=== PATIENT | male | born 1970 | race Caucasian/White ===

== ENCOUNTER 2019-07-06 15:47 | Outpatient (REF) | payer BC, SELFPAY ==
[2019-07-06 21:37] LABS: HCT 44.5 % (40.0-50.0); HGB 15.6 g/dL (13.5-17.5); Mean Corp. HGB Concentration 35.1 g/dL (32.0-36.0); Mean Corpuscular Hemoglobin 29.9 pg (27.0-33.0); Mean Corpuscular Volume 85.2 fL (80-95); Mean Platelet Volume 10.4 fL (8.0-11.0); Platelet Count 326 x1000/uL (130-400); RBC 5.22 m/cumm (4.50-6.00); RBC Distribution Width 12.7 % (11.8-14.1); White Blood Cell Count 8.55 k/cumm (4.4-10.8)
[2019-07-06 21:54] LABS: BUN 24 mg/dL (7-18); CREATININE 0.96 mg/dL (0.70-1.30); Calcium 9.2 mg/dL (8.5-10.1); Chloride 102 mmol/L (98-107); Glucose 82 mg/dL (74-106); Sodium 139 mmol/L (136-145)
== END 2019-07-06 16:07 ==
LOC: NCHCN 15:47
PROVIDERS: Visit Provider Internal Medicine
DX: Z00.00 Encounter for general adult medical examination without abnormal findings (principal); R03.0 Elevated blood-pressure reading, without diagnosis of hypertension
CPT/HCPCS: 80048; 85027

== ENCOUNTER 2019-07-12 14:24 | Outpatient (REF) | payer BC, SELFPAY | END 2019-07-12 14:44 | LOC: NCHCN 14:24 | PROVIDERS: Visit Provider Internal Medicine | DX: Z13.220 Encounter for screening for lipoid disorders (principal); Z53.8 Procedure and treatment not carried out for other reasons | CPT/HCPCS: 80061 ==

== ENCOUNTER 2019-07-15 08:34 | Outpatient (REF) | payer BC, SELFPAY ==
[2019-07-15 21:32] LABS: Calculated LDL 138 mg/dL; Cholesterol 203 mg/dL (<200); HDL Cholesterol 45 mg/dL (40-60); Triglyceride 100 mg/dL (<150)
== END 2019-07-15 08:54 ==
LOC: NCHCN 08:34
PROVIDERS: Visit Provider Internal Medicine
DX: Z13.220 Encounter for screening for lipoid disorders (principal)
CPT/HCPCS: 80061

== ENCOUNTER 2020-01-24 22:40 | Outpatient (REF) | payer BC, SELFPAY ==
[2020-01-24 22:28] LABS: HCT 44.4 % (40.0-50.0); HGB 15.4 g/dL (13.5-17.5); Mean Corp. HGB Concentration 34.7 g/dL (32.0-36.0); Mean Corpuscular Hemoglobin 29.6 pg (27.0-33.0); Mean Corpuscular Volume 85.4 fL (80-95); Mean Platelet Volume 10.4 fL (8.0-11.0); Platelet Count 317 x1000/uL (130-400); RBC Distribution Width 12.5 % (11.8-14.1); White Blood Cell Count 7.66 k/cumm (4.4-10.8)
[2020-01-24 22:57] LABS: ALT 58 U/L (16-63); AST 31 U/L (15-37); Albumin 4.7 g/dL (3.4-5.0); Alkaline Phosphatase 56 U/L (46-116); BUN 27 mg/dL (7-18); Bilirubin, Total 0.8 mg/dL (0.2-1.0); CREATININE 0.97 mg/dL (0.70-1.30); Calcium 8.9 mg/dL (8.5-10.1); Chloride 103 mmol/L (98-107); Glucose 91 mg/dL (74-106); Potassium 4.3 mmol/L (3.5-5.1); Sodium 137 mmol/L (136-145); TSH 1.89 uIU/mL (0.36-3.74)
[2020-01-26 10:12] LABS: HIV-1/2 Ag & Ab Screen Negative (Negative)
[2020-01-26 15:34] LABS: Chlamydia Result Negative (Negative); GC Result Negative (Negative)
== END 2020-01-24 23:00 ==
LOC: NCHCN 22:40
PROVIDERS: Visit Provider Internal Medicine
DX: Z00.00 Encounter for general adult medical examination without abnormal findings (principal); R03.0 Elevated blood-pressure reading, without diagnosis of hypertension; F52.32 Male orgasmic disorder; Z11.4 Encounter for screening for human immunodeficiency virus [HIV]; Z11.3 Encounter for screening for infections with a predominantly sexual mode of transmission
CPT/HCPCS: 80053; 85027; 87389; 87491; 87591; 84443

== ENCOUNTER 2022-10-21 13:51 | Outpatient (REF) | payer BC, SELFPAY ==
[2022-10-21 16:47] LABS: ALT 68 U/L (16-63); AST 34 U/L (15-37); Albumin 4.1 g/dL (3.4-5.0); Alkaline Phosphatase 63 U/L (46-116); Anion Gap 10.3 mmol/L (3-11); BUN 20 mg/dL (7-18); Bilirubin, Total 0.5 mg/dL (0.2-1.0); CO2 22.7 mmol/L (21.0-32.0); CREATININE 1.1 mg/dL (0.70-1.30); Calcium 8.9 mg/dL (8.5-10.1); Calculated LDL 117 mg/dL (<100); Chloride 105 mmol/L (98-107); Cholesterol 185 mg/dL (<200); Estimated GFR 80.77 (mL/min/1.73m2); Glucose 95 mg/dL (74-106); HDL Cholesterol 54 mg/dL (40-60); Potassium 4.4 mmol/L (3.5-5.1); Sodium 138 mmol/L (136-145); Total Protein 7.4 g/dL (6.4-8.2); Triglyceride 74 mg/dL (<150)
== END 2022-10-21 13:52 | disposition home or self-care (01) ==
LOC: NCHCN 13:51
PROVIDERS: Visit Provider Internal Medicine
DX: E78.5 Hyperlipidemia, unspecified (principal); R03.0 Elevated blood-pressure reading, without diagnosis of hypertension; E66.3 Overweight
CPT/HCPCS: 80053; 80061

== ENCOUNTER 2025-05-30 11:05 | Outpatient (REF) | payer BC, SELFPAY ==
[2025-05-30 15:14] LABS: HCT 44.7 % (40.0-50.0); HGB 15.0 g/dL (13.5-17.5); MCH 29.6 pg (27.0-33.0); MCHC 33.6 % (32.0-36.0); MCV 88 fL (80-95); MPV 10.0 fL (8.0-11.0); Platelet Count 286 10^3/uL (130-400); RBC 5.06 10^6/uL (4.36-5.78); RDW 12.7 % (11.8-14.1); RDW-SD 41.1 fL; WBC 7.97 10^3/uL (4.4-10.8)
[2025-05-30 15:33] LABS: Hemoglobin A1C 5.5 % (<5.7)
[2025-05-30 16:24] LABS: ALT 56 U/L (16-63); AST 28 U/L (15-37); Albumin 4.0 g/dL (3.4-5.0); Alkaline Phosphatase 57 U/L (46-116); Anion Gap 8.5 mmol/L (3-11); BUN 24 mg/dL (7-18); Bilirubin, Total 0.5 mg/dL (0.2-1.0); CO2 25.5 mmol/L (21.0-32.0); Calcium 8.8 mg/dL (8.5-10.1); Calculated LDL 137 mg/dL (<100); Chloride 105 mmol/L (98-107); Cholesterol 199 mg/dL (<200); Estimated GFR 89.44 (mL/min/1.73m2); Glucose 91 mg/dL (74-106); HDL Cholesterol 43 mg/dL (>or=40); Potassium 4.4 mmol/L (3.5-5.1); Sodium 139 mmol/L (136-145); Total Protein 7.5 g/dL (6.4-8.2); Triglyceride 98 mg/dL (<150)
== END 2025-05-30 11:06 | disposition home or self-care (01) ==
LOC: NCHCN 11:05
PROVIDERS: Visit Provider Physician Assistant
CPT/HCPCS: 80053; 80061; 85027; 83036